=== PATIENT | female | born 2000 | race Caucasian/White ===

== ENCOUNTER 2021-07-23 11:18 | Inpatient (IN) | payer MEDICAID ==
[~2021-07-23] VITALS: Ht 152.4 cm; Wt 79.8 kg
[2021-07-23] MEDS ORDERED: CITRIC ACID/SODIUM CITRATE 30 ML UDC PO SCH (11:35)
[2021-07-23 11:48] VITALS: BP 121/78
[2021-07-23 12:42] LABS: APPEARANCE,URINE SL CLOUDY (CLEAR); BILIRUBIN,URINE NEGATIVE (NEGATIVE); BLOOD, URINE NEGATIVE (NEGATIVE); COLOR,URINE YELLOW (YELLOW); LEUKOCYTE ESTERASE ,URINE TRACE (NEGATIVE); NITRITE, URINE NEGATIVE (NEGATIVE); UGLUCOSE NEGATIVE (NEGATIVE)
[2021-07-23 12:46] LABS: BASOPHILS % (AUTO) 0.4 % (0.0-2.0); EOSINOPHILS # (AUTO) 0.2 K/uL (0-0.4); EOSINOPHILS % (AUTO) 2.2 % (0.0-4.0); HEMATOCRIT 32.6 % (36-48); HEMOGLOBIN 10.7 g/dL (12.0-16.0); LYMPHOCYTES # (AUTO) 3.1 K/uL (2.5-16.5); LYMPHOCYTES % (AUTO) 32.1 % (20.5-51.1); MEAN CORPUSCULAR HEMOGLOBIN 27 pg (27-31); MEAN CORPUSCULAR HGB CONC 33 g/dL (33-37); MEAN CORPUSCULAR VOLUME 80.7 fL (80-94); MONOCYTES # (AUTO) 0.8 K/uL (0.8-1.0); NEUTROPHILS # (AUTO) 5.6 K/uL (1.8-7.7); NEUTROPHILS % (AUTO) 57.3 % (42.2-75.2); PLATELET COUNT (AUTO) 350 K/uL (140-450); RED BLOOD CELL COUNT(AUTO) 4.04 MIL/uL (4.20-5.40); RED CELL DISTRIBUTION WIDTH 13.8 % (11.6-13.7); WHITE BLOOD COUNT (AUTO) 9.7 K/uL (4.8-10.8)
[2021-07-23 12:54] LABS: ALBUMIN 2.6 g/dL (3.4-5.0); ANION GAP 13.1 (8-16); CARBON DIOXIDE 20.8 mmol/L (21-32); CREATININE 0.6 mg/dL (0.6-1.3); POTASSIUM 3.9 mmol/L (3.5-5.1); TOTAL BILIRUBIN 0.2 mg/dL (0.0-1.0)
[2021-07-23] MEDS: LACTATED RINGERS 1,000 ML IV SCH ×3 (13:03→16:44)
[2021-07-23 13:12] LABS: RBC,URINE 0-5 /HPF (0-5)
[2021-07-23 13:13] LABS: WBC,URINE 0-5 /HPF (0-5)
[2021-07-23 13:14] LABS: CALCIUM OXALATE CRYSTALS,UR None Seen /HPF (None Seen); TRICHOMONAS,URINE None Seen /HPF (None Seen); TRIPLE PHOSPHATE CRYSTAL,UR None Seen /HPF (None Seen); URIC ACID CRYSTALS,URINE None Seen /HPF (None Seen); YEAST,URINE None Seen /HPF (None Seen)
[2021-07-23 13:15] LABS: COARSE GRANULAR CASTS,URINE None Seen /LPF (None Seen); FINE GRANULAR CASTS,URINE None Seen /LPF (None Seen); HYALINE CASTS, URINE None Seen /LPF (None Seen); OTHER CASTS, URINE None Seen /LPF (None Seen); OTHER CRYSTALS,URINE None Seen /HPF (None Seen); RED BLOOD CELL CASTS,URINE None Seen /LPF (None Seen); URINE AMORPHOUS URATE None Seen /HPF (None Seen); WAXY CASTS,URINE None Seen /LPF (None Seen)
[2021-07-23] MEDS ORDERED: fentaNYL citrate 0.05 MG/ML VIAL ONE (16:24)
[2021-07-23] MEDS ORDERED: MORPHINE PRES FREE 5 MG/10 ML AMP IV ONE (16:24)
[2021-07-23] MEDS ORDERED: TEMAZEPAM 15 MG CAP PO PRN (17:05)
[2021-07-23] MEDS ORDERED: KETOROLAC 30 MG/ML VIAL IVP PRN (17:05)
[2021-07-23] MEDS ORDERED: SIMETHICONE 80 MG TAB.CHEW PO PRN (17:05)
[2021-07-23] MEDS ORDERED: METHYLERGONOVINE 0.2 MG/ML AMP IM PRN (17:05)
[2021-07-23] MEDS ORDERED: IBUPROFEN 800 MG TAB PO PRN (17:05)
[2021-07-23] MEDS ORDERED: KETOROLAC 60 MG/2 ML VIAL IM PRN (17:40)
[2021-07-23] MEDS ORDERED: NALOXONE 0.4 MG/ML VIAL IVP PRN ×2 (17:40)
[2021-07-23] MEDS ORDERED: ONDANSETRON 4 MG/2 ML VIAL IVP PRN (17:40)
[2021-07-23] MEDS ORDERED: diphenhydrAMINE 50 MG/ML VIAL IVP PRN (17:40)
[2021-07-23] MEDS ORDERED: diphenhydrAMINE 50 MG/ML VIAL ONE (17:51)
[2021-07-23] MEDS: OXYTOCIN 20 UNITS/LR PREMIX 1,000 ML IV ONE ×4 (18:11→18:57)
[2021-07-23] MEDS: DOCUSATE SOD/SENNA 50/8.6 MG 1 TAB PO SCH (21:00)
[2021-07-23] MEDS ORDERED: HYDROmorphone 1 MG/ML AMP IVP PRN (22:40)
[2021-07-23] MEDS ORDERED: METHYLERGONOVINE 0.2 MG/ML AMP IM ONE (22:50)
[2021-07-23] MEDS: OXYTOCIN 20 UNITS in LACTATED RINGERS 1,000 ML IV SCH (22:58)
[2021-07-23 23:01] LABS: BASOPHILS % (AUTO) 0.2 % (0.0-2.0); EOSINOPHILS # (AUTO) 0.1 K/uL (0-0.4); EOSINOPHILS % (AUTO) 0.5 % (0.0-4.0); HEMATOCRIT 25.2 % (36-48); HEMOGLOBIN 8.5 g/dL (12.0-16.0); LYMPHOCYTES # (AUTO) 3.7 K/uL (2.5-16.5); LYMPHOCYTES % (AUTO) 21.1 % (20.5-51.1); MEAN CORPUSCULAR HEMOGLOBIN 27 pg (27-31); MEAN CORPUSCULAR HGB CONC 34 g/dL (33-37); MEAN CORPUSCULAR VOLUME 80.8 fL (80-94); MONOCYTES # (AUTO) 1.1 K/uL (0.8-1.0); MONOCYTES % (AUTO) 6.3 % (1.7-9.3); NEUTROPHILS # (AUTO) 12.6 K/uL (1.8-7.7); NEUTROPHILS % (AUTO) 71.9 % (42.2-75.2); PLATELET COUNT (AUTO) 329 K/uL (140-450); RED BLOOD CELL COUNT(AUTO) 3.12 MIL/uL (4.20-5.40); RED CELL DISTRIBUTION WIDTH 13.9 % (11.6-13.7); WHITE BLOOD COUNT (AUTO) 17.5 K/uL (4.8-10.8)
[2021-07-24] MEDS ORDERED: OXYTOCIN 20 UNITS/LR PREMIX 1,000 ML IV ONE (06:49)
[2021-07-24] MEDS: OXYTOCIN 20 UNITS in LACTATED RINGERS 1,000 ML IV SCH (06:57)
--- NOTE | 2021-07-24 08:51 | NUR ---
PATIENT HAS BEEN SCREENED AND CATEGORIZED LOW NUTRITION RISK. PATIENT WILL BE SEEN WITHIN 7 DAYS OF ADMISSION. 07/29/[address]
[2021-07-24] MEDS ORDERED: oxyCODONE/APAP 5/325 MG 1 TAB TAB PO PRN (10:00)
[2021-07-24] MEDS: oxyCODONE/APAP 5/325 MG 1 TAB TAB PO PRN (14:00)
[2021-07-24] MEDS ORDERED: SODIUM PHOSPHATE 118 ML ENEM RC PRN (15:55)
[2021-07-24] MEDS: DOCUSATE SOD/SENNA 50/8.6 MG 1 TAB PO SCH (21:00)
[2021-07-24] MEDS ORDERED: CAMERA MC ONE (22:29)
[2021-07-25] MEDS: oxyCODONE/APAP 5/325 MG 1 TAB TAB PO PRN (07:04)
== END 2021-07-25 11:35 | disposition home or self-care (01) | DRG 540 ==
LOC: MLD 11:18 → OBSVTOIN 11:34 → INTOOBSV 11:39 → MFCC 18:40
PROVIDERS: ADMIT Obstetrics & Gynecology; ATTEND Obstetrics & Gynecology
PROC: 10D00Z1 Extraction of Products of Conception, Low, Open Approach (ICD-10-PCS; principal; 2021-07-23 16:30)
DX: O34.211 Maternal care for low transverse scar from previous cesarean delivery (principal); Z20.822 Contact with and (suspected) exposure to COVID-19; Z37.0 Single live birth; Z3A.39 39 weeks gestation of pregnancy
CPT/HCPCS: 36415; 80053; 81001; 85025; 86592; 86886; 86900; 86901; 90715; J0690; J1170; J1200; J1885; J2210; J2590; J3010; J7060; J7120